=== PATIENT | female | born 1930 | race Caucasian/White ===

== ENCOUNTER 2020-04-20 22:53 | Inpatient (IN) | payer SELFPAY ==
[~2020-04-20] VITALS: Ht 162.6 cm; Wt 107.5 kg
[2020-04-20 23:07] VITALS: BP 122/52
[2020-04-21 00:15] LABS: BASOPHILS % (AUTO) 0.7 % (0.0-2.0); EOSINOPHILS % (AUTO) 1.7 % (0.0-4.0); HEMATOCRIT 36.4 % (36-48); HEMOGLOBIN 12.1 g/dL (12.0-16.0); LYMPHOCYTES # (AUTO) 0.8 K/uL (2.5-16.5); LYMPHOCYTES % (AUTO) 28.8 % (20.5-51.1); MEAN CORPUSCULAR HEMOGLOBIN 27 pg (27-31); MEAN CORPUSCULAR HGB CONC 33 g/dL (33-37); MEAN CORPUSCULAR VOLUME 79.8 fL (80-94); MONOCYTES # (AUTO) 0.2 K/uL (0.8-1.0); NEUTROPHILS # (AUTO) 1.6 K/uL (1.8-7.7); NEUTROPHILS % (AUTO) 60.8 % (42.2-75.2); PLATELET COUNT (AUTO) 131 K/uL (140-450); RED BLOOD CELL COUNT(AUTO) 4.56 MIL/uL (4.20-5.40); RED CELL DISTRIBUTION WIDTH 14.2 % (11.6-13.7); WHITE BLOOD COUNT (AUTO) 2.6 K/uL (4.8-10.8)
[2020-04-21 00:31] LABS: PROTHROMBIN TIME 10.1 secs (10.8-13.4)
[2020-04-21 00:34] LABS: ALBUMIN 3.5 g/dL (3.4-5.0); ASPARTATE AMINOTRANSFERASE 18 U/L (15-37); CARBON DIOXIDE 27.7 mmol/L (21-32); CHLORIDE 106 mmol/L (98-107); CREATININE 1.4 mg/dL (0.6-1.3); GLUCOSE 104 mg/dL (74-106); POTASSIUM 3.7 mmol/L (3.5-5.1); SODIUM SERUM 143 mmol/L (136-145); TOTAL BILIRUBIN 0.4 mg/dL (0.0-1.0); UREA NITROGEN, BLOOD 17 mg/dL (7-18)
--- NOTE | 2020-04-21 00:56 | NUR ---
PT TAKEN TO BED 6 VIA W/C.
--- NOTE | 2020-04-21 00:57 | NUR ---
DR. FUENTES AT BEDSIDE.
[2020-04-21] MEDS ORDERED: ONDANSETRON 4 MG/2 ML VIAL IM/IVP PRN (01:20)
[2020-04-21] MEDS ORDERED: HYDROcodone/APAP 5/325 MG 1 TAB TAB PO PRN (01:20)
[2020-04-21] MEDS ORDERED: MORPHINE SULFATE 2 MG/ML SYR IVP PRN (01:20)
[2020-04-21] MEDS ORDERED: DOCUSATE SODIUM 100 MG GELCAP PO PRN (01:20)
[2020-04-21] MEDS ORDERED: ACETAMINOPHEN 325 MG TAB PO PRN (01:20)
--- NOTE | 2020-04-21 01:29 | NUR ---
Dr. Kam is evaluating the patient at bedside.
[2020-04-21 01:59] LABS: CHOL/HDL RATIO 7.9 (1-4.5); MAGNESIUM 1.5 mg/dL (1.8-2.4); PHOSPHORUS 2.9 mg/dL (2.5-4.9); THYROID STIMULATING HORMONE 4.13 uIU/mL (0.34-3.74)
[2020-04-21] MEDS ORDERED: MAG SULF 2000 MG/WATER PREMIX 50 ML IV SCH (02:15)
--- NOTE | 2020-04-21 02:30 | NUR ---
PT RESTING IN BED EYES OPEN AND RESPONSIVE TO VERBAL STIMULI. PT ON STAFF INTERNIST OFFICE BASED ONLY. PT STATES CHEST PAIN HAS DECREASED. BLANKET OFFERED FOR COMFORT. BED LOCKED AND IN LOWEST POSITION AT THIS TIME.
--- NOTE | 2020-04-21 02:30 | NUR ---
Note joanna in EDM - 04/21/20 at 0801 by JARETT PT RESTING IN BED EYES OPEN AND RESPONSIVE TO VERBAL STIMULI. PT ON SKIN SPECIALIST. PT STATES CHEST PAIN HAS DECREASED. BLANKET OFFERED FOR COMFORT. BED LOCKED AND IN LOWEST POSITION AT THIS TIME.
--- NOTE | 2020-04-21 03:12 | NUR ---
PT RESPONSIVE TO VERBAL STIMULI. PT REMAINS ON [employer] HELPER. VSS. PT SON AT BEDSIDE FOR TRANSLATING PER TANIYA FROM CHARGE NURSE. PT SPEAKS ONLY UKRAINIAN. PT STATES PAIN IS "MINIMAL AND IS TOLERABLE AT THIS TIME." BED IS LOCKED AND IN LOWEST POSTION.
[2020-04-21] MEDS ORDERED: CHLO25TA33 PO (03:30)
[2020-04-21] MEDS ORDERED: CARV12.5 PO (03:30)
[2020-04-21] MEDS ORDERED: CLOP75TA55 PO (03:30)
[2020-04-21] MEDS ORDERED: ASPI-1822 PO (03:30)
[2020-04-21] MEDS ORDERED: LOSA25TA43 PO (03:30)
[2020-04-21] MEDS ORDERED: CETI-120 PO (03:33)
[2020-04-21] MEDS ORDERED: COMMUNICATION ORDER MC PRN (03:35)
[2020-04-21] MEDS ORDERED: ASPI81EC98 PO (03:45)
[2020-04-21] MEDS ORDERED: MAG SULF 2000 MG/WATER PREMIX 50 ML IV ONE (04:08)
--- NOTE | 2020-04-21 04:10 | NUR ---
MRSA NASAL SWAB AND UA COLLECTED AND SENT TO LAB.
--- NOTE | 2020-04-21 04:30 | NUR ---
MAG SUF ADMINISTERED THROUGH IV IN R HAND @ 25 ML/HR PER ORDER. PT ON AGRISCIENCE TEACHER. PT RESTING IN BED EYES OPEN. RESPONASIVE TO VERBAL STIMULI. VS- BP:140/83, HR:70, RR:10, O2SAT@ 100% RA.
--- NOTE | 2020-04-21 04:35 | NUR ---
*RR: 13
[2020-04-21 04:43] LABS: APPEARANCE,URINE CLEAR (CLEAR); BILIRUBIN,URINE NEGATIVE (NEGATIVE); BLOOD, URINE NEGATIVE (NEGATIVE); COLOR,URINE YELLOW (YELLOW); LEUKOCYTE ESTERASE ,URINE NEGATIVE (NEGATIVE); NITRITE, URINE NEGATIVE (NEGATIVE); UGLUCOSE NEGATIVE (NEGATIVE)
--- NOTE | 2020-04-21 05:00 | NUR ---
VS- BP:138/72, HR:72, RR:15, O2SAT@ 100% RA. PT RESTING IN BED. RESPIRATIONS ARE EVEN AND UNLABORED. SKIN IS WARM AND DRY TO TOUCH. PT REMAINS ON COMMUNICATIONS PROGRAMMER. PT MAG RUNNING @ 25ML/HR. IV SITE IS PATENT. NO SWELLING OR REDNESS NOTED AT SITE.
--- NOTE | 2020-04-21 05:30 | NUR ---
VS- BP:124/74, HR:73, RR:13, O2SAT@ 100% RA. PT CONTINUES TO REMAIN ON CARDIAN MONITOR. RESPIRATIONS AR EVEN AND UNLABORED SKIN IS WARM AND DRY TO TOUCH.
--- NOTE | 2020-04-21 06:05 | NUR ---
LAB AT BEDSIDE.
--- NOTE | 2020-04-21 06:30 | NUR ---
MAG SULFATE FINISHED. NO ADVERSE DRUG REACTION NOTED. PT RESTING IN BED EYES OPEN. PT REMAINS ON CARDIAC MONTIOR. RESPIRATIONS ARE EVEN AND UNLABORED. SKIN IS WARM AND DRY TO TOUCH. VSS.
[2020-04-21 06:35] LABS: BASOPHILS % (AUTO) 0.7 % (0.0-2.0); EOSINOPHILS # (AUTO) 0.1 K/uL (0-0.4); EOSINOPHILS % (AUTO) 3.2 % (0.0-4.0); HEMOGLOBIN 11.9 g/dL (12.0-16.0); LYMPHOCYTES # (AUTO) 0.6 K/uL (2.5-16.5); LYMPHOCYTES % (AUTO) 29.6 % (20.5-51.1); MEAN CORPUSCULAR HEMOGLOBIN 27 pg (27-31); MEAN CORPUSCULAR HGB CONC 33 g/dL (33-37); MEAN CORPUSCULAR VOLUME 80.4 fL (80-94); MONOCYTES # (AUTO) 0.2 K/uL (0.8-1.0); MONOCYTES % (AUTO) 11.3 % (1.7-9.3); NEUTROPHILS # (AUTO) 1.2 K/uL (1.8-7.7); NEUTROPHILS % (AUTO) 55.2 % (42.2-75.2); PLATELET COUNT (AUTO) 118 K/uL (140-450); RED BLOOD CELL COUNT(AUTO) 4.47 MIL/uL (4.20-5.40); RED CELL DISTRIBUTION WIDTH 14.2 % (11.6-13.7); WHITE BLOOD COUNT (AUTO) 2.1 K/uL (4.8-10.8)
[2020-04-21] MEDS ORDERED: ACET-2619 PO (06:42)
--- NOTE | 2020-04-21 06:48 | NUR ---
Dr. Garcia is evaluating the patient at bedside.
--- NOTE | 2020-04-21 07:30 | NUR ---
Patient will be admitted to care of . Admited to TELE. Will go to room 124A. Belongings list completed. Report to OMID BARNES.
--- NOTE | 2020-04-21 07:30 | NUR ---
Note joanna in EDM - 04/21/20 at 0801 by JARETT Patient will be admitted to care of . Admited to TELE. Will go to room 124A. Belongings list completed. Report to OMID BARNES.
[2020-04-21 07:35] VITALS: BP 139/71
--- NOTE | 2020-04-21 07:35 | NUR ---
RECEIVED REPORT FROM ER NURSE. PT AMBULATED WITH ASSISTANCE TO BED. AOX4- SPEAKS UKRAINIAN, ON ROOM AIR WITH RIGHT HAND #24G/SL. DISCUSSED PLAN OF CARE WITH PT SON FARIHA CORBIN AND PT VERBALIZED UNDERSTANDING. CALL LIGHT WITHIN REACH. NO S/S OF RESPIRATORY DISTRESS OR DISCOMFORT NOTED AT THIS TIME. WILL CONTINUE TO MONITOR.
[2020-04-21] MEDS: CARVEDILOL 12.5 MG TAB PO SCH ×2 (08:18→18:14)
--- NOTE | 2020-04-21 08:18 | NUR ---
ADMISSION DONE WITH BRIM POUNCER IS # [id number]. PT VERBALIZED UNDERSTANDING. SCHEDULED MEDICATIONS GIVEN AND TOLERATED WELL. CALL LIGHT WITHIN REACH. NO S/S OF RESPIRATORY DISTRESS OR DISCOMFORT NOTED AT THIS TIME. WILL CONTINUE TO MONITOR.
[2020-04-21] MEDS ORDERED: COMMUNICATION ORDER MC SCH (09:00)
[2020-04-21] MEDS ORDERED: LOSARTAN 25 MG TAB PO SCH (09:00)
[2020-04-21] MEDS ORDERED: ASPIRIN 81 MG TAB.CHEW PO SCH (09:00)
[2020-04-21] MEDS ORDERED: CLOPIDOGREL 75 MG TAB PO SCH (09:00)
[2020-04-21] MEDS ORDERED: CHLORTHALIDONE 25 MG TAB PO SCH (09:00)
--- NOTE | 2020-04-21 09:26 | NUR ---
PATIENT HAS BEEN SCREENED AND CATEGORIZED MODERATE NUTRITION RISK. PATIENT WILL BE SEEN WITHIN 3-5 DAYS OF ADMISSION. 04/23/2020-04/25/[address]
--- NOTE | 2020-04-21 10:00 | NUR ---
SCHEDULED MEDICATION CHLORTHALIDONE GIVEN AND TOLERATED WELL. CALL LIGHT WITHIN REACH. NO S/S OF RESPIRATORY DISTRESS OR DISCOMFORT NOTED AT THIS TIME. WILL CONTINUE TO MONITOR.
[2020-04-21 12:00] VITALS: BP 106/55
--- NOTE | 2020-04-21 12:00 | NUR ---
PT RESTING IN BED. CALL LIGHT WITHIN REACH. NO S/S OF RESPIRATORY DISTRESS OR DISCOMFORT NOTED AT THIS TIME. WILL CONTINUE TO MONITOR.
[2020-04-21] MEDS ORDERED: NACL 0.9% 1,000 ML IV SCH (13:00)
[2020-04-21 13:07] LABS: ANION GAP 12.2 (8-16); CARBON DIOXIDE 27.3 mmol/L (21-32); CHLORIDE 105 mmol/L (98-107); GLUCOSE 120 mg/dL (74-106); POTASSIUM 3.5 mmol/L (3.5-5.1); SODIUM SERUM 141 mmol/L (136-145); UREA NITROGEN, BLOOD 16 mg/dL (7-18)
[2020-04-21 13:10] LABS: MAGNESIUM 1.8 mg/dL (1.8-2.4); PHOSPHORUS 3.1 mg/dL (2.5-4.9)
--- NOTE | 2020-04-21 14:00 | NUR ---
PT CONTINUES TO REST IN BED. CALL LIGHT WITHIN REACH. NO S/S OF RESPIRATORY DISTRESS OR DISCOMFORT NOTED AT THIS TIME. WILL CONTINUE TO MONITOR.
[2020-04-21 16:00] VITALS: BP 127/69
--- NOTE | 2020-04-21 16:00 | NUR ---
PT CONTINUES TO REST IN BED. CALL LIGHT WITHIN REACH. NO S/S OF RESPIRATORY DISTRESS OR DISCOMFORT NOTED AT THIS TIME. WILL CONTINUE TO MONITOR.
--- NOTE | 2020-04-21 18:14 | NUR ---
SCHEDULED MEDICATIONS COREG GIVEN AND TOLERATED WELL. CALL LIGHT WITHIN REACH. NO S/S OF RESPIRATORY DISTRESS OR DISCOMFORT NOTED AT THIS TIME. WILL CONTINUE TO MONITOR.
--- NOTE | 2020-04-21 19:10 | NUR ---
REPORT GIVEN TO NURSE MCNALLY FOR CONTINUITY OF CARE. PT STABLE AT THIS TIME.
--- NOTE | 2020-04-21 19:10 | NUR ---
RECEIVED PATIENT IN STABLE CONDITION FROM AM SHIFT NURSE FOR CONTINUITY OF CARE. RESPIRATIONS EVEN, UNLABORED. SKIN WARM, DRY. IV SITE NOTED TO RIGHT HAND 24G, PATENT/INTACT, INFUSING FLUIDS WELL. NO C/O PAIN. NO S/S ACUTE DISTRESS. CALL LIGHT WITHIN REACH. SAFETY PRECAUTIONS IN PLACE.
[2020-04-21 20:00] VITALS: BP 112/84
--- NOTE | 2020-04-21 23:10 | NUR ---
PATIENT LEFT AMA. ALL BELONGINGS SENT WITH PATIENT. ARMBANDS REMOVED. IV SITE REMOVED, CANNULA INTACT. NO DISCOMFORT NOTED FROM PATIENT.
[2020-04-22] MEDS ORDERED: ATORVASTATIN 20 MG TAB PO SCH (09:00)
== END 2020-04-21 23:45 | disposition left against medical advice (07) | DRG 205 ==
LOC: MED 22:53 → MTU 04-21 01:17
PROVIDERS: ADMIT General Practice; ATTEND General Practice
DX: M94.0 Chondrocostal junction syndrome [Tietze] (principal); N17.0 Acute kidney failure with tubular necrosis; I24.9 Acute ischemic heart disease, unspecified; K21.9 Gastro-esophageal reflux disease without esophagitis; E78.00 Pure hypercholesterolemia, unspecified; I25.2 Old myocardial infarction; Z95.5 Presence of coronary angioplasty implant and graft; I50.9 Heart failure, unspecified; I11.0 Hypertensive heart disease with heart failure; I25.10 Atherosclerotic heart disease of native coronary artery without angina pectoris; E83.42 Hypomagnesemia; D72.819 Decreased white blood cell count, unspecified; E02 Subclinical iodine-deficiency hypothyroidism
CPT/HCPCS: 36415; 71045; 80048; 80053; 81003; 83036; 83690; 83735; 83880; 84100; 84443; 84484; 85025; 85610; 85730; 87081; 96365; 99285; J3475; J7030; Q0163